=== PATIENT | male | born 1940 | race Caucasian/White ===

== ENCOUNTER 2016-03-26 07:34 | Outpatient (CLI) | payer MEDICARE, OTHER ==
[2016-03-26 09:25] LABS: #Basophils 0.1 thou/uL (0.0-0.2); #Eosinphils 0.2 thou/uL (0.0-0.7); #Monocytes 0.7 thou/uL (0.11-0.59); #Neutrophils 4.7 thou/uL (1.40-6.50); %Eosinophils 2.4 % (0.0-10.0); %Monocytes 10.1 % (0.0-10.0); Hematocrit 51.4 % (42.0-52.0); Red Blood Cell (RBC) Count 5.62 mill/uL (4.70-6.10); White Blood Cell (WBC) Count 6.6 thou/uL (4.8-10.8)
[2016-03-26 09:40] LABS: ALT (SGPT) 11 U/L (0-55); AST (SGOT) 15 U/L (5-34); Alkaline Phosphatase 71 U/L (40-150); Anion Gap 13 mmol/L (10-20); BUN (Urea Nitrogen) 17 mg/dL (8.4-25.7); Bilirubin, Direct 0.4 mg/dL (0.1-0.3); Bilirubin, Total 1.1 mg/dL (0.2-1.2); Calc. Creatinine Clearance 0 mL/min (70-130); Calcium 9.1 mg/dL (7.8-10.44); Carbon Dioxide 27 mmol/L (23-31); Chloride 107 mmol/L (98-107); Estimated GFR-MDRD 64
[2016-03-26 10:46] LABS: Protein, Total 6.3 g/dL (5.8-8.1)
[2016-03-26 12:47] LABS: Bilirubin Negative (Negative); Blood, Urine Moderate (Negative); Glucose, Urine (Dipstick) Negative (Negative); Ketone, Urine Negative (Negative); Nitrite Negative (Negative); Protein, Urine (Dipstick) Negative (Neg-Trace); Urobilinogen 0.2 mg/dL (0.2-1.0)
[2016-03-26 13:00] LABS: Bacteria/HPF None Seen HPF (None Seen); Hyaline Casts/LPF NONE SEEN LPF (0-3 Hyaline); Oval Fat Bodies/HPF None Seen HPF (None Seen); RBC/HPF 0-3 HPF (0-3); Renal Epithelial None Seen HPF (0-3); Sperm/HPF None Seen HPF (None Seen); Squamous Epithelial None Seen HPF (0-3); Transitional Epithelial NONE SEEN HPF (0-3); Trichomonas/HPF None Seen HPF (None Seen); WBC/HPF None Seen HPF (0-3); Yeast-All Forms None Seen HPF (None Seen)
== END 2016-03-26 07:35 | disposition home or self-care (01) ==
LOC: BURLAB 07:34
PROVIDERS: ATTEND Urology
DX: C61 Malignant neoplasm of prostate (principal); R31.29 Other microscopic hematuria
CPT/HCPCS: 36415; 80048; 80076; 81001; 84153; 85025; 87086

== ENCOUNTER 2016-04-24 13:55 | Outpatient (CLI) | payer MEDICARE, OTHER | END 2016-04-24 13:56 | disposition home or self-care (01) | LOC: BURLAB 13:55 | PROVIDERS: ATTEND Family Medicine | DX: Z01.812 Encounter for preprocedural laboratory examination (principal) | CPT/HCPCS: 36415; 82565 ==

== ENCOUNTER 2016-07-24 14:46 | Outpatient (CLI) | payer MEDICARE, OTHER ==
--- NOTE | 2016-07-24 21:54 | RAD ---
CHEST TWO VIEWS 07/24/16 Comparison is made with a 07/[address] [facility]. The heart is normal in size today. All lines and tubes have been removed since the prior exam. There are no congestive changes, pleural effusions, or focal pulmonary infiltrates. The lungs are now russell ar. The mediastinum appears normal. IMPRESSION: No acute thoracic finding. POS: HOME
== END 2016-07-24 14:47 | disposition home or self-care (01) ==
LOC: BURRAD 14:46
PROVIDERS: ATTEND Family Medicine
DX: R06.02 Shortness of breath (principal)
CPT/HCPCS: 71020

== ENCOUNTER 2016-08-01 12:16 | Emergency (ER) | payer MEDICARE, OTHER ==
[2016-08-01] MEDS ORDERED: Famotidine In NaCl 20 mg/50 ml Premix Bag ONE ×2 (12:36→13:05)
[2016-08-01] MEDS ORDERED: Ondansetron HCl/PF 4 MG/2 ML Vial ONE ×2 (12:36→13:05)
== END 2016-08-01 14:02 | disposition home or self-care (01) ==
LOC: BURERS 12:16
DX: E86.0 Dehydration (principal); Z87.891 Personal history of nicotine dependence; Z79.899 Other long term (current) drug therapy
CPT/HCPCS: 96361; 96365; 96375; J2405

== ENCOUNTER 2016-08-08 11:19 | Emergency (ER) | payer MEDICARE, OTHER ==
[2016-08-08] MEDS ORDERED: Famotidine In NaCl 20 mg/50 ml Premix Bag ONE (11:35)
[2016-08-08] MEDS ORDERED: Ondansetron HCl/PF 4 MG/2 ML Vial ONE (11:35)
[2016-08-08 11:49] LABS: #Basophils 0.3 thou/uL (0.0-0.2); #Eosinphils 0.2 thou/uL (0.0-0.7); #Lymphocytes 0.7 thou/uL (1.20-3.40); #Monocytes 1.6 thou/uL (0.11-0.59); #Neutrophils 15.4 thou/uL (1.40-6.50); %Basophils 1.9 % (0.0-1.0); %Eosinophils 1.1 % (0.0-10.0); %Lymphocytes 3.8 % (21.0-51.0); %Monocytes 8.9 % (0.0-10.0); %Neutrophils 84.3 % (42.0-75.0); Hemoglobin 13.3 g/dL (14.0-18.0); Mean Corpuscular Hemoglobin 28.8 pg (27.0-31.0); Mean Corpuscular Volume 84.9 fl (80.0-94.0); Mean Platelet Volume 6.3 fL (7.4-10.4); Platelet Count 450 thou/uL (130-400); RBC Distribution Width 12.8 % (11.5-14.5); Red Blood Cell (RBC) Count 4.61 mill/uL (4.70-6.10); White Blood Cell (WBC) Count 18.3 thou/uL (4.8-10.8)
[2016-08-08 11:58] LABS: ALT (SGPT) 72 U/L (8-55); AST (SGOT) 32 U/L (5-34); Albumin 3.7 g/dL (3.4-4.8); Alkaline Phosphatase 247 U/L (40-150); Anion Gap 19 mmol/L (10-20); BUN (Urea Nitrogen) 31 mg/dL (8.4-25.7); Bilirubin, Total 0.5 mg/dL (0.2-1.2); Calc. Creatinine Clearance 0 mL/min (70-130); Calcium 10.3 mg/dL (7.8-10.44); Chloride 100 mmol/L (98-107); Estimated GFR-MDRD 42; Globulin 4.2 g/dL (2.4-3.5); Glucose 182 mg/dL (83-110); Potassium 4.7 mmol/L (3.5-5.1); Protein, Total 7.9 g/dL (5.8-8.1); Sodium 134 mmol/L (136-145)
[2016-08-08 12:02] LABS: CKMB 0.5 ng/mL (0-6.6); Troponin I 0.018 ng/mL (< 0.028)
[2016-08-08 12:11] LABS: Carbon Dioxide 20 mmol/L (23-31)
[2016-08-08] MEDS ORDERED: Piperacillin/Tazobactam 3.375 GM VIAL ONE (12:50)
--- NOTE | 2016-08-08 13:41 | CT ---
CT ABDOMEN AND PELVIS WITH CONTRAST: Date: 08-08-16 Technique: Spiral CT of the abdomen and pelvis was done for elevation of nauseas and vomiting in thi s patient with recent abdominal surgery and ileostomy. Axial slices were acquired after giving IV co ntrast. Oral contrast was withheld by request. Axial slices were obtained and then sagittal and amita nal reconstructions were done. Comparison: 07-13-16 [address] [facility]. FINDINGS: The lung bases are essentially clear and there are no large effusions. The major finding on this yesi dy is a rounded contained collection of fluid and gas in the left upper quadrant that measures just over 8 cm in size. It appears to be lodged between the bottom of the spleen and the splenic flexure of the colon. There is a little bit of inflammatory streaking around it. The findings suggest an abs cess. The liver and spleen showed no acute changes, nor did the pancreas. Various cysts are seen in each k idney. There is no hydronephrosis. The right adrenal gland appears normal. The left is somewhat diff icult to assess today. The aorta shows some calcification but no dilation. Aside from the 8 cm gas fluid collection in the left upper quadrant, I do not see any free air in th e abdomen. 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 There is no dilated bowel to suggest obstruction. CT of the pelvis showed no free fluid or worrisome inflammatory change. No masses or significant jose nopathy was seen. IMPRESSION: 8+ cm fluid-gas collection in the left upper quadrant between the spleen and splenic flexure of the colon that seems encapsulated and contained. The finding suggests a growing abscess since the 07-13 ud. Findings discussed with Dr. Rothman at 1247 on 08-08-16. POS: HOME
--- NOTE | 2016-08-08 15:33 | RAD ---
PORTABLE CHEST 08/08/16 An AP portable film at 1138 is compared with a 07/24 study. The heart is normal in size and the lungs are clear. No infiltrate or effusion was seen. There is no congestion or edema. The trachea is midline. IMPRESSION: No acute thoracic finding. POS: HOME
== END 2016-08-08 13:24 | disposition short-term general hospital (02) ==
LOC: BURERS 11:19
DX: K65.1 Peritoneal abscess (principal); R62.7 Adult failure to thrive; K57.92 Diverticulitis of intestine, part unspecified, without perforation or abscess without bleeding; Z87.891 Personal history of nicotine dependence; Z79.899 Other long term (current) drug therapy
CPT/HCPCS: 36415; 71010; 74177; 80053; 82274; 82553; 83605; 84484; 85025; 87040; 96361; 96365; 96367; 96375; J2405; J2543

== ENCOUNTER 2016-08-28 14:12 | Outpatient (CLI) | payer MEDICARE, OTHER ==
[2016-08-28 14:33] LABS: #Basophils 0.2 thou/uL (0.0-0.2); #Eosinphils 0.3 thou/uL (0.0-0.7); #Lymphocytes 0.9 thou/uL (1.20-3.40); #Monocytes 1.7 thou/uL (0.11-0.59); #Neutrophils 11.8 thou/uL (1.40-6.50); %Basophils 1.1 % (0.0-1.0); %Eosinophils 1.7 % (0.0-10.0); %Lymphocytes 5.9 % (21.0-51.0); %Monocytes 11.7 % (0.0-10.0); %Neutrophils 79.5 % (42.0-75.0); Hemoglobin 12.1 g/dL (14.0-18.0); Mean Corpuscular HGB CONC 33.3 g/dL (32.0-36.0); Mean Corpuscular Hemoglobin 29.3 pg (27.0-31.0); Mean Platelet Volume 6.4 fL (7.4-10.4); Platelet Count 241 thou/uL (130-400); RBC Distribution Width 15.5 % (11.5-14.5); Red Blood Cell (RBC) Count 4.12 mill/uL (4.70-6.10); White Blood Cell (WBC) Count 14.8 thou/uL (4.8-10.8)
== END 2016-08-28 14:13 | disposition home or self-care (01) ==
LOC: BURLAB 14:12
PROVIDERS: ATTEND Surgery
DX: K94.13 Enterostomy malfunction (principal); K65.1 Peritoneal abscess
CPT/HCPCS: 36415; 85025

== ENCOUNTER 2018-12-02 15:08 | Outpatient (CLI) | payer MEDICARE, OTHER ==
--- NOTE | 2018-12-02 22:22 | RAD ---
CHEST TWO VIEWS: 12/02/18 Comparison is made with the 08/08/16 study. The heart is normal in size. Calcification is seen in the aortic arch. The lungs are fully inflated a nd clear with no lobar infiltrate or effusion seen. The bony structures showed no acute change. IMPRESSION: No acute thoracic finding. POS: HOME
== END 2018-12-02 15:09 | disposition home or self-care (01) ==
LOC: BURRAD 15:08
PROVIDERS: ATTEND Family Medicine
DX: J44.1 Chronic obstructive pulmonary disease with (acute) exacerbation (principal)
CPT/HCPCS: 71046

== ENCOUNTER 2020-05-16 12:36 | Emergency (ER) | payer MEDICARE, OTHER ==
[~2020-05-16 12:36] MED LIST: Iopamidol 370 76% 100 ML VIAL ONE
[2020-05-16 13:19] LABS: #Basophils 0.1 thou/uL (0.0-0.2); #Eosinphils 0.1 thou/uL (0.0-0.7); #Lymphocytes 0.9 thou/uL (1.20-3.40); #Monocytes 0.7 thou/uL (0.11-0.59); #Neutrophils 6.3 thou/uL (1.40-6.50); %Basophils 1.3 % (0.0-1.0); %Eosinophils 0.7 % (0.0-10.0); %Lymphocytes 11.7 % (21.0-51.0); %Monocytes 8.5 % (0.0-10.0); %Neutrophils 77.8 % (42.0-75.0); Hemoglobin 18.1 g/dL (14.0-18.0); Mean Corpuscular HGB CONC 32.5 g/dL (32.0-36.0); Mean Corpuscular Hemoglobin 30.3 pg (27.0-31.0); Mean Corpuscular Volume 93.4 fL (78.0-98.0); Mean Platelet Volume 6.9 fL (7.4-10.4); Platelet Count 235 thou/uL (130-400); RBC Distribution Width 12.3 % (11.5-14.5); Red Blood Cell (RBC) Count 5.98 mill/uL (4.70-6.10); White Blood Cell (WBC) Count 8.1 thou/uL (4.8-10.8)
[2020-05-16 13:34] LABS: ALT (SGPT) 100 U/L (8-55); AST (SGOT) 64 U/L (5-34); Albumin 4.1 g/dL (3.4-4.8); Alkaline Phosphatase 181 U/L (40-110); Anion Gap 16 mmol/L (10-20); BUN (Urea Nitrogen) 17 mg/dL (8.4-25.7); Bilirubin, Total 0.7 mg/dL (0.2-1.2); Calc. Creatinine Clearance 0 mL/min (70-130); Calcium 9.5 mg/dL (7.8-10.44); Carbon Dioxide 28 mmol/L (23-31); Chloride 100 mmol/L (98-107); Globulin 2.4 g/dL (2.4-3.5); Glucose 88 mg/dL (83-110); Lipase 53 U/L (8-78); Potassium 4.5 mmol/L (3.5-5.1); Protein, Total 6.5 g/dL (5.8-8.1); Sodium 139 mmol/L (136-145)
[2020-05-16] MEDS ORDERED: Morphine 4 MG/ML VIAL ONE (13:49)
[2020-05-16] MEDS ORDERED: Ondansetron PF 4 MG/2 ML Vial ONE (13:49)
[2020-05-16 13:53] LABS: Bilirubin Negative (Negative); Blood, Urine Trace (Negative); Clarity Clear (Clear); Glucose, Urine (Dipstick) Negative (Negative); Ketone, Urine Negative (Negative); Leukocyte Negative (Negative); Nitrite Negative (Negative); Protein, Urine (Dipstick) Negative (Neg-Trace); Urobilinogen 0.2 mg/dL (Less than 2)
[2020-05-16 14:03] LABS: Bacteria/HPF Rare-Few HPF (None Seen); RBC/HPF 0-3 HPF (0-3); Squamous Epithelial 0-3 HPF (0-3); WBC/HPF 0-3 HPF (0-3)
[2020-05-16] MEDS ORDERED: Fentanyl 100 MCG/2 ML VIAL ONE (14:32)
[2020-05-16] MEDS ORDERED: Piperacillin/Tazobactam 4.5 GM VIAL ONE (15:01)
[2020-05-16] MEDS ORDERED: Sodium Chloride 0.9% 100 ML ONE (15:04)
== END 2020-05-16 15:43 | disposition short-term general hospital (02) ==
LOC: BURERS 12:36
DX: K76.89 Other specified diseases of liver (principal); J44.9 Chronic obstructive pulmonary disease, unspecified; F17.210 Nicotine dependence, cigarettes, uncomplicated; Z79.899 Other long term (current) drug therapy
CPT/HCPCS: 74177; 80053; 81003; 81015; 83605; 83690; 85025; 93005; 96365; 96375; J2270; J2405; J2543; J3010; J3490; Q9967

== ENCOUNTER 2020-11-16 11:11 | Emergency (ER) | payer MEDICARE, OTHER ==
[2020-11-16 11:53] LABS: #Eosinphils 0.1 thou/uL (0.0-0.7); #Lymphocytes 0.7 thou/uL (1.20-3.40); #Monocytes 0.2 thou/uL (0.11-0.59); #Neutrophils 4.9 thou/uL (1.40-6.50); %Basophils 0.7 % (0.0-1.0); %Lymphocytes 11.7 % (21.0-51.0); %Monocytes 3.6 % (0.0-10.0); Hemoglobin 14.6 g/dL (14.0-18.0); Mean Corpuscular HGB CONC 34.2 g/dL (32.0-36.0); Mean Corpuscular Hemoglobin 32.4 pg (27.0-31.0); Mean Corpuscular Volume 94.7 fL (78.0-98.0); Mean Platelet Volume 4.9 fL (7.4-10.4); Platelet Count 301 thou/uL (130-400); RBC Distribution Width 13.7 % (11.5-14.5); Red Blood Cell (RBC) Count 4.51 mill/uL (4.70-6.10); White Blood Cell (WBC) Count 5.9 thou/uL (4.8-10.8)
[2020-11-16 12:07] LABS: ALT (SGPT) 40 U/L (8-55); AST (SGOT) 17 U/L (5-34); Albumin 4.5 g/dL (3.4-4.8); Alkaline Phosphatase 123 U/L (40-110); Anion Gap 17 mmol/L (10-20); BUN (Urea Nitrogen) 34 mg/dL (8.4-25.7); Bilirubin, Total 0.8 mg/dL (0.2-1.2); Calc. Creatinine Clearance 0 mL/min (70-130); Calcium 10.3 mg/dL (7.8-10.44); Carbon Dioxide 21 mmol/L (23-31); Chloride 104 mmol/L (98-107); Globulin 2.9 g/dL (2.4-3.5); Glucose 117 mg/dL (83-110); Lipase 27 U/L (8-78); Potassium 4.4 mmol/L (3.5-5.1); Protein, Total 7.4 g/dL (5.8-8.1); Sodium 138 mmol/L (136-145)
[2020-11-16 15:07] LABS: Bilirubin Negative (Negative); Blood, Urine Negative (Negative); Clarity Clear (Clear); Glucose, Urine (Dipstick) Negative (Negative); Ketone, Urine Negative (Negative); Leukocyte Negative (Negative); Nitrite Negative (Negative); Protein, Urine (Dipstick) Negative (Neg-Trace); Urobilinogen 0.2 mg/dL (Less than 2); pH, Urine 5.5 (5.0-9.0)
== END 2020-11-16 15:02 | disposition home or self-care (01) ==
LOC: BURERS 11:11
DX: E86.0 Dehydration (principal); C78.7 Secondary malignant neoplasm of liver and intrahepatic bile duct; C34.90 Malignant neoplasm of unspecified part of unspecified bronchus or lung; J44.9 Chronic obstructive pulmonary disease, unspecified; E78.5 Hyperlipidemia, unspecified; F17.210 Nicotine dependence, cigarettes, uncomplicated; Z79.899 Other long term (current) drug therapy; Z79.82 Long term (current) use of aspirin
CPT/HCPCS: 80053; 81003; 83605; 83690; 85025; 96360; 96361